=== PATIENT | female | born 1980 | race Caucasian/White ===

== ENCOUNTER → 2021-03-25 | Outpatient (CLI) | LOC: MERGE 14:47 → LABNPT 14:47 | PROVIDERS: ATTEND Family Medicine | DX: R10.2 Pelvic and perineal pain (principal) | CPT/HCPCS: 87210 ==

== ENCOUNTER → 2021-04-08 | Outpatient (CLI) | payer BC ==
--- NOTE | 2021-04-08 12:11 | Diagnostic Imaging Report ---
PROCEDURE: US Non-ob pelvis comp/trans. TECHNIQUE: Multiple realtime grayscale images were obtained of the pelvis in various projections endovaginally. Transabdominal imaging was also performed. INDICATION: Dyspareunia on control. The uterus appeared normal and measured 5.8 x 2.7 x 4.2 cm. The myometrial echotexture pattern homogenous and normal. There is no fibroid or myometrial mass. The right ovary could not be visualized. The left ovary appeared normal no pelvic ascites. The endometrial thickness was 1.8 mm homogenous and normal. IMPRESSION: Unremarkable transabdominal and transvaginal pelvic ultrasound. Nonvisualization of the right ovary. No acute appearing abnormality apparent and no demonstrated mass. Dictated by: Dictated on workstation # [id number]
== END ==
LOC: RAD 10:15
PROVIDERS: ATTEND Family Medicine
DX: N94.19 Other specified dyspareunia (principal)
CPT/HCPCS: 76830; 76856

== ENCOUNTER → 2021-06-03 | Outpatient (CLI) | payer BC | LOC: LABNPT 14:58 | PROVIDERS: ATTEND Family Medicine | DX: J30.2 Other seasonal allergic rhinitis (principal) | CPT/HCPCS: 87070 ==

== ENCOUNTER → 2022-01-07 | Outpatient (CLI) | payer BC | LOC: LABNPT 15:49 | PROVIDERS: ATTEND Family Medicine | DX: R10.2 Pelvic and perineal pain (principal) | CPT/HCPCS: 87070; 87205; 87210 ==

== ENCOUNTER → 2022-01-07 | Outpatient (CLI) | payer BC | LOC: LABNPT 12:49 | PROVIDERS: ATTEND Family Medicine | DX: R10.2 Pelvic and perineal pain (principal) | CPT/HCPCS: 87210 ==

== ENCOUNTER → 2022-01-13 | Outpatient (CLI) | payer BC ==
[2022-01-13 13:54] LABS: BILIRUBIN,URINE NEGATIVE (NEGATIVE); CLARITY,URINE CLEAR; COLOR,URINE ORANGE; GLUCOSE, URINE (UA) TRACE (NEGATIVE); KETONES,URINE NEGATIVE (NEGATIVE); LEUKOCYTE ESTERASE ,URINE NEGATIVE (NEGATIVE); NITRITE,URINE NEGATIVE (NEGATIVE); PH,URINE 6.5 (5-9); PROTEIN,URINE NEGATIVE (NEGATIVE)
[2022-01-13 14:11] LABS: BACTERIA,URINE TRACE /HPF; RBC,URINE RARE /HPF; SQUAMOUS EPITHELIAL CELL,UR RARE /HPF; WBC,URINE RARE /HPF
== END ==
LOC: LABNPT 13:26
PROVIDERS: ATTEND Obstetrics & Gynecology
DX: N76.5 Ulceration of vagina (principal); N89.8 Other specified noninflammatory disorders of vagina
CPT/HCPCS: 81000; 87254

== ENCOUNTER → 2022-04-06 | Outpatient (CLI) | payer BC | LOC: LAB FS 12:16 | PROVIDERS: ATTEND Family Medicine | DX: N89.8 Other specified noninflammatory disorders of vagina (principal) | CPT/HCPCS: 87210 ==

== ENCOUNTER → 2022-08-26 | Outpatient (CLI) | payer BC | LOC: LABNPT 13:04 | PROVIDERS: ATTEND Family Medicine | DX: Z01.419 Encounter for gynecological examination (general) (routine) without abnormal findings (principal); N94.2 Vaginismus | CPT/HCPCS: 87210 ==